=== PATIENT | male | born 1970 | race Caucasian/White ===

== ENCOUNTER 2023-05-18 12:10 | Emergency (ER) | payer MEDICAID, SELFPAY ==
--- NOTE | 2023-05-18 12:11 | XR_ITS ---
WS: [id number] Exam: XR chest 1V portable [id number] Date/Time of Exam: 05/18/2023 12:30 PM Reason For Exam: cp No previous exams. There are patchy airspace and interstitial infiltrates in the mid and lower RIGHT lung and mid LEFT l jameson. The lungs are fully inflated. No pleural effusions. Cardiomediastinal silhouette is unremarkable for technique. Numerous old right-sided rib fractures are noted. IMPRESSION: 1. Bilateral pulmonary infiltrates as noted above. This could represent chronic change or acute pneum onia. 2. Numerous old right-sided rib fractures.
[2023-05-18 12:20] VITALS: BP 185/89; PULSE 38; RESP 18; TEMP 36.6; O2SAT 96; BMI 38.5
--- NOTE | 2023-05-18 12:24 | ECG_ITS ---
[facility] Test Date: 2023-05-18 Pat Name: Mina Kumar Department: Room: Gender: Male Welder/Fabricator: : 1970 Requested By: Reinier Alvarez Order Number: [id number] Flako MD: Joao Blandon M.D. Measurements Intervals [place] Rate: 73 P: 68 [place]: 159 QRS: 54 QRSD: 90 T: 94 QT: 415 QTc: 458 Interpretive Statements SINUS RHYTHM WITH OCCASIONAL SUPRAVENTRICULAR PREMATURE COMPLEXES No previous ECG available for comparison Electronically Signed On 05-18-2023 19:36:20 MOTHERS HELPER by Joao Blandon M.D. [id number]
[2023-05-18 12:49] LABS: Basophils # 0.1 10^3/uL (0.0-0.1); Basophils % 0.9 %; Eosinophils # 0.1 10^3/uL (0.0-0.8); Eosinophils % 0.7 %; Hematocrit 49.6 % (37-53); Lymphocytes % 15.1 %; Mean Corpuscular HGB Conc 30.6 g/dL (30-55); Mean Corpuscular Hemoglobin 29.6 pg (27-33); Mean Corpuscular Volume 96.7 fl (82-101); Monocytes # 0.8 10^3/uL (0.2-0.9); Monocytes % 6.3 %; Neutrophils # 10.11 10^3/uL (1.8-7.7); Neutrophils % 76.5 %; Nucleated Red Blood Cells % 0 %; Platelet Count 430 10^3/cmm (157-399); Red Blood Count 5.13 10^6/uL (3.85-5.65); Red Cell Distribution Width 13.3 % (12.1-15.1); White Blood Count 13.22 10^3/uL (3.29-11.43)
--- NOTE | 2023-05-18 13:00 | PC.NURSE ---
Pt placed on bedside playground monitor
[2023-05-18 13:02] LABS: INR 0.99 (0.8-1.2)
--- NOTE | 2023-05-18 13:16 | ED_ITS ---
HPI - Recheck/Abnormal Lab/Rx 2 General: Chief Complaint: Recheck/Abnormal Lab/Rx Stated Complaint: chest pain Time Seen by Provider: 05/18/23 12:26 Source: patient Mode of arrival: ambulatory Limitations: no limitations History of Present Illness: 52-year-old male is [facility] he is scheduled for cataract they did an EKG that was normal blood studies in A-fib before that want him checked out. He has no medical complaints of palpitations or chest pain only complaint he states he had a cough over the last 2 weeks he denies any shortness of breath denies any fever. Review of Systems 2 Const: Denies: fever(s) or chills ENMT: Denies: throat pain or dental pain Card: Denies: chest pain Resp: Reports: non-productive cough; Denies: dyspnea GI: Denies: abdominal pain, nausea, vomiting or diarrhea : Denies: dysuria Musc: Denies: neck pain or back pain Skin/Breast: Denies: rash Neuro: Denies: headache(s) Physical Exam 2 Const: COMMON NORMALS: no acute distress, patient oriented x3 and healthy appearing HENMT: COMMON NORMALS: normocephalic and atraumatic HEAD & SCALP: n ormocephalic and atraumatic Eye: COMMON NORMALS: Equal, round and reactive pupils present and EOMs intact bilaterally PUPIL: Yes Equal, round and reactive pupils present Neck/C-Spine: COMMON NORMALS: full ROM and supple Chest: COMMONS NORMALS: normal inspection of the chest and normal palpation of entire chest wall Resp: COMMON NORMALS: normal respiratory effort, No retractions and No use of accessory muscles AUSCULTATION: rales Cardio: COMMON NORMALS: regular rate, regular rhythm and No murmurs present (Cardio) RATE: regular rate RHYTHM: regular rhythm GI: COMMON NORMALS: Normal to inspection, nondistended, normoactive bowel sounds present, Soft to palpation, non-tender and no masses PALPATION: Yes Soft to palpation Extremity: COMMON NORMALS: normal to inspection and full ROM Neuro: COMMON NORMALS: patient oriented x3, moves all extremities and no focal motor deficits Psych: COMMON NORMALS: mental status grossly normal, Normal thought process present and cooperative THOUGHT PROCESS: Normal thought process present Skin: COMMON NORMALS: no rashes or lesions noted and no wounds GENERAL SKIN EXAM: no rashes or lesions noted Course 2 Vital Signs: Vital signs: Vital Signs Temperature 97.9 F 05/18/23 12:20 Pulse Rate 38 L 05/18/23 12:20 Respiratory Rate 18 05/18/23 12:20 Blood Pressure 185/89 05/18/23 12:20 Pulse Oximetry 96 05/18/23 12:20 Oxygen Delivery Me thod Room Air 05/18/23 12:20 MDM - Recheck/Abnormal Lab/Rx Medical Decision Making Patient presents after being sent here from [facility] for possible A-fib has not been A-fib here has had a cough as well x-ray shows a pneumonia BNP is mildly elevated he had no chest pain here informed he needs to follow-up with his PCP 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 He is return if worsening. Medical Records I reviewed the patient's medical records. Lab Data I reviewed the patient's lab results. 05/18/23 12:42 05/18/23 12:42 Laboratory Results WBC 13.22 10^3/uL (3.29-11.43) H 05/18/23 12:42 RBC 5.13 10^6/uL (3.85-5.65) 05/18/23 12:42 Hgb 15.20 g/dL (11.27-16.99) 05/18/23 12:42 Hct 49.6 % (37-53) 05/18/23 12:42 MCV 96.7 fl (82-101) 05/18/23 12:42 MCH 29.6 pg (27-33) 05/18/23 12:42 MCHC 30.6 g/dL (30-55) 05/18/23 12:42 RDW 13.3 % (12.1-15.1) 05/18/23 12:42 Plt Count 430 10^3/cmm (157-399) H 05/18/23 12:42 MPV 10.0 fL (7.4-10.4) 05/18/23 12:42 Neut % (Auto) 76.5 % 05/18/23 12:42 Lymph % (Auto) 15.1 % 05/18/23 12:42 [place] % (Auto) 6.3 % 05/18/23 12:42 Eos % (Auto) 0.7 % 05/18/23 12:42 Baso % (Auto) 0.9 % 05/18/23 12:42 Neut # (Auto) 10.11 10^3/uL (1.8-7.7) H 05/18/23 12:42 Lymph # (Auto) 2.0 10^3/uL (0.8-4.8) 05/18/23 12:42 [place] # (Auto) 0.8 10^3/uL (0.2-0.9) 05/18/23 12:42 Eos # (Auto) 0.1 10^3/uL (0.0-0.8) 05/18/23 12:42 Baso # (Auto) 0.1 10^3/uL (0.0-0.1) 05/18/23 12:42 Nucleated RBC % (auto) 0 % 05/18/23 12:42 Nucleated RBCs # 0.0 /100WBC 05/18/23 12:42 PT 13.40 SECONDS (12.1-14.9) 05/18/23 12:42 INR 0.99 (0.8-1.2) 05/18/23 12:42 Sodium 142 mmol/L (136-145) 05/18/23 12:42 Potassium 4.4 mmol/L (3.5-5.1) 05/18/23 12:42 Chloride 103 mmol/L (98-107) 05/18/23 12:42 Carbon Dioxide 32 mmol/L (22-29) H 05/18/23 12:42 Anion Gap 11.4 (5-19) 05/18/23 12:42 BUN 11 mg/dL (6-20) 05/18/23 12:42 Creatinine 0.7 mg/dL (0.7-1.2) 05/18/23 12:42 GFR Calculation 118.0 mL/min (90-130) 05/18/23 12:42 Glucose 146 mg/dL (65-115) H 05/18/23 12:42 Calculated Osmolality 296 mOsm/kg (285-295) H 05/18/23 12:42 Calcium 9.5 mg/dL (8.5-10.5) 05/18/23 12:42 Total Bilirubin 0.5 mg/dL (0.15-1.2) 05/18/23 12:42 AST 32 U/L (0-40) 05/18/23 12:42 ALT 37 U/L (0-41) 05/18/23 12:42 Alkaline Phosphatase 103 U/L (40-130) 05/18/23 12:42 NT-Pro-B Natriuret Pep 1746 pg/mL (0-125) H 05/18/23 12:42 Total Protein 6.6 g/dL (6.6-8.7) 05/18/23 12:42 Albumin 3.9 g/dL (3.5-5.2) 05/18/23 12:42 Globulin 2.7 g/dL (1.3-4.6) 05/18/23 12:42 All radiology interpretation(s) finalized by discharge EKG Data EKG 1: I personally reviewed and interpreted this EKG as follows: EKG interpretation date: 05/18/23 EKG interpretation time: 12:16 Interpretation: nsr hr [address] or t wave abnormalities qrs 90 qtc 440 Discharge Plan Discharge Patient Disposition: Home Clinical Impression: Pneumonia Condition: Stable Prescriptions: No Action No Known Home Medications Discharge Orders: Discharge ED (Routine); Ordered 05/18/23 Ordered By: Alice Salvador Discharge Diet: Advance as tolerated Discharge Activity: Resume usual activity Patient Instructions: Bacterial Pneumonia (ED) Coding Level of Care Code ED Climatology Professor for Neil Jane
[2023-05-18 13:22] LABS: Alanine Aminotransferase 37 U/L (0-41); Albumin Level 3.9 g/dL (3.5-5.2); Alkaline Phosphatase 103 U/L (40-130); Anion Gap 11.4 (5-19); Aspartate Amino Transferase 32 U/L (0-40); Blood Urea Nitrogen 11 mg/dL (6-20); Calcium 9.5 mg/dL (8.5-10.5); Carbon Dioxide 32 mmol/L (22-29); Chloride 103 mmol/L (98-107); Globulin 2.7 g/dL (1.3-4.6); Glucose 146 mg/dL (65-115); NT Pro B Type Natriuretic Pept 1746 pg/mL (0-125); Osmolality Calculated 296 mOsm/kg (285-295); Potassium 4.4 mmol/L (3.5-5.1); Sodium 142 mmol/L (136-145); Total Bilirubin 0.5 mg/dL (0.15-1.2); Total Protein 6.6 g/dL (6.6-8.7)
[2023-05-18] MEDS: doxycycline 100 mg Tablet PO (14:06)
--- NOTE | 2023-05-18 14:10 | ED_ITS ---
HPI - Recheck/Abnormal Lab/Rx 2 General: Chief Complaint: Recheck/Abnormal Lab/Rx Stated Complaint: chest pain Time Seen by Provider: 05/18/23 12:26 Source: patient Mode of arrival: ambulatory Limitations: no limitations Course 2 Vital Signs: Vital signs: Vital Signs Temperature 97.9 F 05/18/23 12:20 Pulse Rate 38 L 05/18/23 12:20 Respiratory Rate 18 05/18/23 12:20 Blood Pressure 185/89 05/18/23 12:20 Pulse Oximetry 96 05/18/23 12:20 Oxygen Delivery Me thod Room Air 05/18/23 12:20 MDM - Recheck/Abnormal Lab/Rx Lab Data I reviewed the patient's lab results. 05/18/23 12:42 05/18/23 12:42 Laboratory Results WBC 13.22 10^3/uL (3.29-11.43) H 05/18/23 12:42 RBC 5.13 10^6/uL (3.85-5.65) 05/18/23 12:42 Hgb 15.20 g/dL (11.27-16.99) 05/18/23 12:42 Hct 49.6 % (37-53) 05/18/23 12:42 MCV 96.7 fl (82-101) 05/18/23 12:42 MCH 29.6 pg (27-33) 05/18/23 12:42 MCHC 30.6 g/dL (30-55) 05/18/23 12:42 RDW 13.3 % (12.1-15.1) 05/18/23 12:42 Plt Count 430 10^3/cmm (157-399) H 05/18/23 12:42 MPV 10.0 fL (7.4-10.4) 05/18/23 12:42 Neut % (Auto) 76.5 % 05/18/23 12:42 Lymph % (Auto) 15.1 % 05/18/23 12:42 [place] % (Auto) 6.3 % 05/18/23 12:42 Eos % (Auto) 0.7 % 05/18/23 12:42 Baso % (Auto) 0.9 % 05/18/23 12:42 Neut # (Auto) 10.11 10^3/uL (1.8-7.7) H 05/18/23 12:42 Lymph # (Auto) 2.0 10^3/uL (0.8-4.8) 05/18/23 12:42 [place] # (Auto) 0.8 10^3/uL (0.2-0.9) 05/18/23 12:42 Eos # (Auto) 0.1 10^3/uL (0.0-0.8) 05/18/23 12:42 Baso # (Auto) 0.1 10^3/uL (0.0-0.1) 05/18/23 12:42 Nucleated RBC % (auto) 0 % 05/18/23 12:42 Nucleated RBCs # 0.0 /100WBC 05/18/23 12:42 PT 13.40 SECONDS (12.1-14.9) 05/18/23 12:42 INR 0.99 (0.8-1.2) 05/18/23 12:42 Sodium 142 mmol/L (136-145) 05/18/23 12:42 Potassium 4.4 mmol/L (3.5-5.1) 05/18/23 12:42 Chloride 103 mmol/L (98-107) 05/18/23 12:42 Carbon Dioxide 32 mmol/L (22-29) H 05/18/23 12:42 Anion Gap 11.4 (5-19) 05/18/23 12:42 BUN 11 mg/dL (6-20) 05/18/23 12:42 Creatinine 0.7 mg/dL (0.7-1.2) 05/18/23 12:42 GFR Calculation 118.0 mL/min (90-130) 05/18/23 12:42 Glucose 146 mg/dL (65-115) H 05/18/23 12:42 Calculated Osmolality 296 mOsm/kg (285-295) H 05/18/23 12:42 Calcium 9.5 mg/dL (8.5-10.5) 05/18/23 12:42 Total Bilirubin 0.5 mg/dL (0.15-1.2) 05/18/23 12:42 AST 32 U/L (0-40) 05/18/23 12:42 ALT 37 U/L (0-41) 05/18/23 12:42 Alkaline Phosphatase 103 U/L (40-130) 05/18/23 12:42 NT-Pro-B Natriuret Pep 1746 pg/mL (0-125) H 05/18/23 12:42 Total Protein 6.6 g/dL (6.6-8.7) 05/18/23 12:42 Albumin 3.9 g/dL (3.5-5.2) 05/18/23 12:42 Globulin 2.7 g/dL (1.3-4.6) 05/18/23 12:42 No radiology studies performed this visit Discharge Plan Discharge Patient Disposition: Home Clinical Impression: Pneumonia Condition: Stable Prescriptions: New doxycycline hyclate 100 mg capsule 100 mg PO BID 7 Days Qty: 14 0RF Discharge Orders: Discharge ED (Routine); Ordered 05/18/23 Ordered By: Alice Salvador Discharge Diet: Advance as tolerated Discharge Activity: Resume usual activity Patient Instructions: Bacterial Pneumonia (ED) Coding Level of Care Code ED General Farm Manager for Neil Jane
== END 2023-05-18 14:15 | disposition home or self-care (01) ==
PROVIDERS: Emergency Provider Emergency Medicine
DX: J18.9 Pneumonia, unspecified organism (principal)
CPT/HCPCS: 36415; 71045; 80053; 83880; 85025; 85610; 93005; 99285

== ENCOUNTER 2025-02-05 09:54 | Day surgery (SDC) | payer MEDICAID, SELFPAY ==
[2025-02-05] VITALS (7 sets, daily range): BP systolic 123–172; BP diastolic 82–95; PULSE 66–82; RESP 16–19; TEMP 36.2–36.4; O2SAT 96–98; BMI 41.1
--- NOTE | 2025-02-05 | XR_ITS ---
WS: [id number] Right foot, C-arm fluoroscopy views, 02/05/2025 Clinical Data: OR PICS Comparison: None. Findings: Dr. Florez performed the distal osteotomies of the right third and fourth metatarsals. XR/XR foot RT 2V [id number] Impression: Distal osteotomies of the right third and fourth metatarsals.
--- NOTE | 2025-02-05 12:38 | P.HPUD_ITS ---
Surgery/Procedure H&P Update DATE OF PROCEDURE: February 05, 2025 DATE H&P PERFORMED: 01/10/25 H&P UPDATE INFORMATION: I have reviewed H&P completed within last 30 days, I have examined patient prior to procedure, No changes to prior documentation, H&P is in [facility] EMR on date indicated and Risks and benefits of the procedure reviewed PREOP DIAGNOSIS: Metatarsalgia PLANNED PROCEDURE: Operation Date: 02/05/25 11:30 Proposed Procedures p third metatarsal osteotomy and fourth metatarsal osteotomy(Right) - James Florez DPM
--- NOTE | 2025-02-05 13:16 | W.PM.BPON ---
Date of procedure: 02/05/2025 Surgeon name: James Florez D.P.M. Microbiological Lab Technician(s) name(s): Manjeet Procedure(s) performed: Right foot 3rd and 4th distal metatarsal osteotomy Description of findings: Keratosis right foot 3rd and 4th metatarsal Estimated blood loss: 2 cc Tourniquet time: No tourniquet used Specimen(s) removed: None Post-operative diagnosis: Same
--- NOTE | 2025-02-05 13:17 | PM.OP ---
Operative Report Date of procedure: February 05, 2025 Surgeon: James Florez DPM Procedure: Date of procedure: February 05, 2025 Pre-op diagnosis: Metatarsalgia right foot Post-op diagnosis: Same Post-op findings: Metatarsalgia Procedure done: 1. Right 3rd metatarsal distal metatarsal osteotomy CPT 34273 2. Right 4th metatarsal distal metatarsal osteotomy CPT 92674 Implants: None Specimens removed: None Surgeon: Dr. James Florez DPM Electrician Yard: Manjeet Estimated blood loss: 2 cc Tourniquet time: See intraoperative documentation Complications: None Patient is a 54-year-old male that has a history of right foot metatarsalgia. The patient has had the aforementioned chief complaint for some time. Conservative treatment measures have been attempted and the patient has opted for surgical intervention at this time. A lengthy discussion regarding the procedure, including risks and complications has been had with the patient and is noted in the recent clinic note. Written and verbal consent have been obtained. All patient questions have been answered to the patient?s satisfaction. No written or verbal guarantees have been given or implied. The patient has been NPO since midnight. The history has been reviewed and the history and physical is current. The signed consent was confirmed and placed in the patient chart. Patient imaging has been reviewed and is consistent with the diagnosis. Under mild sedation, the patient was brought into the operating room and placed on the table in the supine position. IV antibiotics were given by the anesthesia team as preoperative surgical prophylaxis. MAC sedation was then performed by the anesthesiateam. A pneumatic tourniquet was then placed about the right ankle. The operative extremity was then prepped and draped in the usual fashion. After prep, the following procedure was then performed. Attention was directed to the right foot. #15 blade was used to make a stab incision at the level of the 3rd and 4th metatarsal neck respectively just lateral to the metatarsal. Blunt dissection was carried down through subcutaneous suprafascial using a mosquito hemostat to the level of the metatarsal. Soft tissues were freed up plantarly and dorsally at the level of the metatarsal neck to both 3rd and 4th metatarsals. Suze bur was inserted into the incision and osteotomy was made through the neck of the 3rd and 4th metatarsals to float the metatarsal head. Good positioning of the metatarsal heads was visualized on C-arm imaging. Incision sites were irrigated with copious amounts of sterile saline before attention was directed to closure. Incision was closed using 4-0 nylon and simple interrupted fashion. Incision site was dressed with Xeroform, 4 x 4 gauze, Kerlix, José Miguel. The patient tolerated the procedure and anesthesia well and without complication. The patient was transported from the operating room to the recovery room with vital signs stable and vascular status intact to all digits of the right foot. The patient was given both written and verbal instructions to remain weightbearing as tolerated to the operative extremity, to keep dressings/splint clean, dry and intact and to take pain medication as directed. The patient will follow-up in the outpatient setting at their scheduled appointment. The patient was discharged with my personal number and was instructed to call if any questions or issues should arise. They were discharged home once anesthesia criteria was met.
--- NOTE | 2025-02-05 13:18 | ECG_ITS ---
[facility] Date: 2025-02-05 Pat Name: Mina Kumar Department: Room: Gender: Male Check Pilot: : 1970 Requested By: James Florez Order Number: [id number] Arriola MD: Joao Blandon M.D. Measurements Intervals [place] Rate: 80 P: 81 MT: 190 QRS: 18 QRSD: 89 T: 48 QT: 379 QTc: 439 Interpretive Statements SINUS RHYTHM WITH SINUS ARRHYTHMIA NONSPECIFIC T-WAVE ABNORMALITY Compared to ECG 05/18/2023 12:16:22 T-wave abnormality now present Electronically Signed On 02-05-2025 23:26:02 CDT by Joao Blandon M.D. [email or web address]
[2025-02-05] MEDS: BUPivacaine 0.5% INJ 30 mL INJECTION (13:19)
--- NOTE | 2025-02-05 14:14 | ANE.PACU2 ---
Inpatient post-anesthesia follow up: Airway intact: Yes Vital signs: Temperature 97.4 F Pulse Rate 76 Respiratory Rate 18 Blood Pressure 143/88 Pulse Oximetry 96 Oxygen Delivery Me thod Room Air Oxygen Flow Rate Fraction of Inspir ed Oxygen Hydration adequate: Yes Nausea and vomiting: No Pain level: 1 Mental status: Baseline
== END 2025-02-05 14:14 | disposition home or self-care (01) ==
PROVIDERS: PCP Physician Assistant; Visit Provider Podiatrist Foot & Ankle Surgery
PROC: (CPT 28308; principal; 2025-02-05 11:20)
DX: M77.41 Metatarsalgia, right foot (principal)
CPT/HCPCS: 28308 ×2; 73620; 76000; 93005; J2250; J2704; J3010; J3490; J7030; J9999

== ENCOUNTER → 2025-02-19 13:32 | Outpatient (BNVA) | payer MEDICAID, SELFPAY | PROVIDERS: PCP Physician Assistant; Visit Provider Podiatrist Foot & Ankle Surgery | DX: Z98.890 Other specified postprocedural states (principal); Q82.8 Other specified congenital malformations of skin; L84 Corns and callosities | CPT/HCPCS: 73630 ==